=== PATIENT | male | born 1960 | race Caucasian/White ===

== ENCOUNTER 2017-04-04 07:48 | Emergency (ER) | payer OTHER ==
[~2017-04-04] VITALS: Ht 180.3 cm; Wt 104.3 kg
[~2017-04-04 07:48] MED LIST: CLARITIN10 MG PO; COMBIVENT1 ARO IH; MEDROL DOSEPAK4 MG PO; NO DAILY MEDS; PREDNICOT20 MG PO; VIBRAMYCIN100 MG PO; ZITHROMAX Z PA250 MG PO; ZITHROMAX250 MG PO
[2017-04-04 08:46] LABS: BASO # 0.1 10*3/uL (0.0-0.1); BASO % 0.4 % (0.0-1.0); EOS # 0.3 10*3/uL (0.0-0.4); EOS % 2.2 % (1.0-4.0); HEMATOCRIT 43.2 % (42.0-52.0); HEMOGLOBIN 14.7 g/dl (14.0-18.0); LYMPH # 1.9 10*3/uL (1.3-4.4); LYMPH % 16.2 % (27.0-41.0); MEAN CELL VOLUME 88.9 fl (80.0-94.0); MEAN CORPUSCULAR HGB 30.2 pg (27.0-31.0); MEAN PLATELET VOLUME 9.8 fl (9.6-12.3); MONO # 0.8 10*3/uL (0.1-1.0); MONO % 7.1 % (3.0-9.0); NEUT # 8.6 10*3/uL (2.3-7.9); NEUT % 73.6 % (47.0-73.0); PLATELET COUNT AUTOMATED 222 10*3/uL (130-400); RED BLOOD COUNT 4.86 10*6/uL (4.50-5.90); RED CELL DISTRI WIDTH 13.2 % (0-14.5); WHITE BLOOD COUNT 11.6 10*3/uL (4.8-10.8)
[2017-04-04 09:04] LABS: BILIRUBIN NEGATIVE (NEGATIVE); BLOOD NEGATIVE (NEGATIVE); CLARITY CLEAR (CLEAR); COLOR YELLOW (YELLOW); GLUCOSE NEGATIVE (NEGATIVE); KETONE NEGATIVE (NEGATIVE); LEUKO ESTERASE NEGATIVE (NEGATIVE); NITRITE NEGATIVE (NEGATIVE); UROBILINOGEN 0.2 E.U./dl (0.2-1.0)
[2017-04-04 09:05] LABS: ALBUMIN 3.3 gm/dl (3.1-4.5); ALKALINE PHOSPHATASE 81 U/L (45-117); BUN 18 mg/dl (7-24); CHLORIDE 110 mmol/L (98-107); CREATININE 1.11 mg/dL (0.70-1.30); LIPASE 107 U/L (73-393); MAGNESIUM 1.8 mg/dL (1.5-2.1); POTASSIUM 3.8 mmol/L (3.5-5.1); SGOT/AST 17 IU/L (3-35); SGPT/ALT 34 U/L (12-78); SODIUM 138 mmol/L (136-145); TOTAL PROTEIN 6.4 gm/dL (6.4-8.2)
[2017-04-04 09:09] LABS: EPITHELIAL CELLS 0-2; RBC 0-2 rbc/hpf (0-2)
[2017-04-04] MEDS ORDERED: NORCO 5-325 TA1 EACH PO (10:52)
[2017-04-04] MEDS ORDERED: CIPRO500 MG PO (10:52)
[2017-04-04] MEDS ORDERED: FLAGYL500 MG PO (10:52)
[2017-04-04] MEDS ORDERED: AUGMENTIN 875875 MG PO (14:44)
== END 2017-04-04 17:29 | disposition home or self-care (01) ==
LOC: ED 07:48
PROVIDERS: Emergency Medicine
DX: K57.32 Diverticulitis of large intestine without perforation or abscess without bleeding (principal); K40.20 Bilateral inguinal hernia, without obstruction or gangrene, not specified as recurrent; F12.10 Cannabis abuse, uncomplicated; E66.9 Obesity, unspecified

== ENCOUNTER 2020-05-21 05:43 | Emergency (ER) | payer SELFPAY ==
[~2020-05-21] VITALS: Ht 180.3 cm; Wt 111.6 kg
[~2020-05-21 05:43] MED LIST changes: +AUGMENTIN 875875 MG PO; +CIPRO500 MG PO; +FLAGYL500 MG PO; +NORCO 5-325 TA1 EACH PO
[2020-05-21 06:45] LABS: BASO # 0.1 10*3/uL (0.0-0.1); BASO % 0.4 % (0.0-1.0); EOS # 0.1 10*3/uL (0.0-0.4); EOS % 0.6 % (1.0-4.0); HEMATOCRIT 47.4 % (42.0-52.0); LYMPH # 1.6 10*3/uL (1.3-4.4); LYMPH % 12.2 % (27.0-41.0); MEAN CELL VOLUME 88.8 fl (80.0-94.0); MEAN CORPUSCULAR HGB 29.4 pg (27.0-31.0); MEAN CORPUSCULAR HGB CONC 33.1 g/dl (33.0-37.0); MEAN PLATELET VOLUME 9.7 fl (9.6-12.3); MONO # 1.1 10*3/uL (0.1-1.0); MONO % 8.1 % (3.0-9.0); NEUT # 10.5 10*3/uL (2.3-7.9); NEUT % 78.3 % (47.0-73.0); PLATELET COUNT AUTOMATED 230 10*3/uL (130-400); RED BLOOD COUNT 5.34 10*6/uL (4.50-5.90); RED CELL DISTRI WIDTH 12.8 % (0-14.5); WHITE BLOOD COUNT 13.5 10*3/uL (4.8-10.8)
[2020-05-21 07:04] LABS: ALBUMIN 3.5 gm/dl (3.1-4.5); ALKALINE PHOSPHATASE 85 U/L (45-117); BUN 17 mg/dl (7-24); CHLORIDE 111 mmol/L (98-107); CREATININE 1.03 mg/dL (0.70-1.30); LIPASE 51 U/L (73-393); POTASSIUM 3.9 mmol/L (3.5-5.1); SGOT/AST 17 IU/L (3-35); SGPT/ALT 45 U/L (12-78); SODIUM 138 mmol/L (136-145); TOTAL PROTEIN 6.8 gm/dL (6.4-8.2)
[2020-05-21 07:07] LABS: TROPONIN I < 0.015 ng/ml (<0.045)
[2020-05-21] MEDS ORDERED: FLAGYL500 MG PO (07:32)
[2020-05-21] MEDS ORDERED: TYLENOL325 M1 PO (07:32)
[2020-05-21] MEDS ORDERED: CIPRO500 MG PO (07:32)
[2020-05-21] MEDS ORDERED: NAPROXEN250 MG PO (07:32)
[2020-05-21 07:39] LABS: BILIRUBIN Negative (Negative); BLOOD Negative (Negative); CLARITY Clear (Clear); COLOR Yellow (Yellow); GLUCOSE Negative (Negative); KETONE Negative (Negative); LEUKO ESTERASE Negative (Negative); NITRITE Negative (Negative); SPECIFIC GRAVITY 1.025 (1.001-1.030)
[2020-05-21 08:01] LABS: BACTERIA 1+; EPITHELIAL CELLS 0-2; MUCOUS 2+; WBC 0-2 wbc/hpf (0-5)
== END 2020-05-21 07:44 | disposition home or self-care (01) ==
LOC: ED 05:43
PROVIDERS: Emergency Medicine Emergency Medical Services
DX: K57.32 Diverticulitis of large intestine without perforation or abscess without bleeding (principal); Z79.899 Other long term (current) drug therapy

== ENCOUNTER 2024-02-21 21:51 | Emergency (ER) | payer OTHER ==
[~2024-02-21] VITALS: Ht 180.3 cm; Wt 108.9 kg
[~2024-02-21 21:51] MED LIST changes: +NAPROXEN250 MG PO; +TYLENOL325 M1 PO
== END 2024-02-21 23:05 | disposition home or self-care (01) ==
LOC: ED 21:51
DX: S80.11XA Contusion of right lower leg, initial encounter (principal); S80.811A Abrasion, right lower leg, initial encounter; F12.10 Cannabis abuse, uncomplicated; Z87.442 Personal history of urinary calculi; X58.XXXA Exposure to other specified factors, initial encounter; Y93.39 Activity, other involving climbing, rappelling and jumping off; Y92.89 Other specified places as the place of occurrence of the external cause; Y99.0 Civilian activity done for income or pay

== ENCOUNTER 2024-06-04 06:22 | Emergency (ER) | payer OTHER ==
[~2024-06-04] VITALS: Ht 180.3 cm; Wt 111.1 kg
[2024-06-04] MEDS ORDERED: methylPREDNISolone sod succ 125 MG VIAL IM ONE (06:35)
[2024-06-04] MEDS ORDERED: Albuterol Sulf/Ipratropium 3 ML VIAL NEB ONE (06:35)
[2024-06-04] MEDS ORDERED: ZITHROMAX250 MG PO (07:08)
[2024-06-04] MEDS ORDERED: PREDNISONE20 M1 PO (07:08)
== END 2024-06-04 07:52 | disposition home or self-care (01) ==
LOC: ED 06:22
DX: J20.8 Acute bronchitis due to other specified organisms (principal); F12.10 Cannabis abuse, uncomplicated; Z87.442 Personal history of urinary calculi